=== PATIENT | male | born 1950 | race Caucasian/White ===

== ENCOUNTER 2017-07-19 09:05 | Outpatient (CLI) | payer MEDICARE, OTHER ==
--- NOTE | 2017-07-19 10:43 | MRI ---
MRI OF LUMBAR SPINE: Date: 07/19/17 COMPARISON: 03/14/14. HISTORY: Bilateral lower extremity pain, lower extremity radiculopathy, recent fall. TECHNIQUE: Multiplanar, multisequence MR imaging of the lumbar spine obtained without contrast. FINDINGS: Incidental note is made of a lobulated and enlarged prominent urinary bladder, incompletely assessed on this study and similar when compared to the 03/14/14 examination. The sagittal STIR imaging demonstrates increased signal intensity within the paraspinal soft tissues on the left posterior to the L4-5 and L5-S1 facet joints. There are mild edematous changes noted on the STIR imaging within the inferior articular facet on the left at L4. There is no significant anterolisthesis or retrolisthesis noted within the lumbar spine. Assuming five lumbar-type vertebral bodies, the conus medullaris terminates at the T12-L1 level. T12-L1: Mild bilateral facet hypertrophy. There is disc space narrowing and disc desiccation. No significant central canal or neural foraminal stenosis. L1-2: Mild bilateral facet hypertrophy. Disc space narrowing and disc desiccation with no significant cent ral canal or neural foraminal stenosis. L2-3: There is disc space narrowing, disc desiccation, and mild disc bulge. There is mild bilateral facet hypertrophy with mild central canal stenosis, stable. There is no significant neural foraminal steno sis on either side. L3-4: Mild bilateral facet hypertrophy and hypertrophy of the ligamentum flavum, stable. Disc space narrow ing, disc desiccation, and mild disc bulge causes a mild degree of central canal stenosis, stable. There is moderate bilateral neural foraminal stenosis at L3-4, not significantly changed. L4-5: There is disc space narrowing and disc desiccation with disc bulge causing mild central canal stenos is. There is bilateral facet hypertrophy and hypertrophy of ligamentum flavum, stable. There is danny re left and moderate right neural foraminal stenosis, worsened bilaterally since the prior examinati on. L5-S1: There is disc space narrowing and disc desiccation with mild disc bulge. No significant central jovana l stenosis. Mild bilateral neural foraminal stenosis. There is a T2 hyperintense anterior mid pole left renal lesion measuring approximately 2.0 cm, incre ased from the 2014 exam, at which time it measured 1.3 cm. The likely represents an enlarging cyst. Ultrasound is suggested for full assessment given interval enlargement. IMPRESSION: 1. Multilevel degenerative change within the lumbar spine, the most significant interval change is worsening bilateral neural foraminal stenosis at L4-5, left greater than right. 2. T2 hyperintensity noted within the paraspinal musculature posterior to the L4-5 and L5-S1 left f acet joints. This could be related to trauma or recent injection. 3. Enlarged lobulated urinary bladder. 4. T2 hyperintense lesion within right kidney, enlarged since prior imaging, likely on the basis of a cyst. Confirmation with renal ultrasound advised. POS: [facility]
== END 2017-07-19 09:06 | disposition home or self-care (01) ==
LOC: MRI 09:05
PROVIDERS: ATTEND Orthopaedic Surgery
DX: M47.26 Other spondylosis with radiculopathy, lumbar region (principal); M48.061 Spinal stenosis, lumbar region without neurogenic claudication; N28.89 Other specified disorders of kidney and ureter; Z12.5 Encounter for screening for malignant neoplasm of prostate; Z00.00 Encounter for general adult medical examination without abnormal findings; Z79.899 Other long term (current) drug therapy
CPT/HCPCS: 72148; 80061; G0103; 36415; 80053; 84443; 85025

== ENCOUNTER 2018-05-04 10:32 | Outpatient (CLI) | payer MEDICARE, OTHER ==
[2018-05-04 12:06] LABS: Hemoglobin 13.7 g/dL (14.0-18.0); Mean Corpuscular HGB CONC 32.6 g/dL (32.0-36.0); Mean Corpuscular Hemoglobin 31.4 pg (27.0-31.0); Mean Corpuscular Volume 96.3 fL (78.0-98.0); Mean Platelet Volume 6.5 fL (7.4-10.4); Platelet Count 209 thou/uL (130-400); RBC Distribution Width 12.1 % (11.5-14.5); Red Blood Cell (RBC) Count 4.36 mill/uL (4.70-6.10); White Blood Cell (WBC) Count 5.5 thou/uL (4.8-10.8)
[2018-05-04 12:15] LABS: INR-International Normal Ratio 1.1; PTT 34.8 SEC (22.9-36.1); Prothrombin Time 13.9 SEC (12.0-14.7)
[2018-05-04 12:26] LABS: Anion Gap 13 mmol/L (10-20); BUN (Urea Nitrogen) 13 mg/dL (8.4-25.7); Calc. Creatinine Clearance 0 mL/min (70-130); Calcium 9.6 mg/dL (7.8-10.44); Carbon Dioxide 24 mmol/L (23-31); Chloride 100 mmol/L (98-107); Estimated GFR-MDRD Greater than 90; Glucose 91 mg/dL (80-115); Potassium 4.5 mmol/L (3.5-5.1); Sodium 132 mmol/L (136-145)
[2018-05-04 12:48] LABS: Bilirubin Negative (Negative); Blood, Urine Negative (Negative); Clarity CLOUDY (Clear); Glucose, Urine (Dipstick) Negative (Negative); Leukocyte Large (Negative); Nitrite Negative (Negative); Protein, Urine (Dipstick) Negative (Neg-Trace); Urobilinogen 0.2 mg/dL (0.2-1.0); pH, Urine 7.5 (5.0-9.0)
[2018-05-04 12:53] LABS: Bacteria/HPF 3+ HPF (None Seen); Hyaline Casts/LPF 0-3 HYALINE CAST LPF (0-3 Hyaline); RBC/HPF 0-3 HPF (0-3); Squamous Epithelial None Seen HPF (0-3)
== END 2018-05-04 10:33 | disposition home or self-care (01) ==
LOC: LABBT 10:32
PROVIDERS: ATTEND Urology
DX: Z01.818 Encounter for other preprocedural examination (principal); N40.1 Benign prostatic hyperplasia with lower urinary tract symptoms
CPT/HCPCS: 80048; 81001; 85027; 85610; 85730; 86850; 86900; 86901; 87086; 93005; 93010

== ENCOUNTER 2018-08-23 20:30 | Outpatient (CLI) | payer MEDICARE, OTHER | END 2018-08-23 20:31 | disposition home or self-care (01) | LOC: SLEEPLAB 20:30 | PROVIDERS: ATTEND Family Medicine | DX: G47.33 Obstructive sleep apnea (adult) (pediatric) (principal); R53.83 Other fatigue; R06.83 Snoring | CPT/HCPCS: 95811 ==

== ENCOUNTER 2021-09-04 12:39 | Outpatient (CLI) | payer MEDICARE, OTHER ==
[~2021-09-04 12:39] MED LIST: Iopamidol 370 76% 100 ML VIAL ONE
[2021-09-04 12:56] LABS: Estimated GFR-MDRD - POC Greater than 90
== END 2021-09-04 12:40 | disposition home or self-care (01) ==
LOC: ULT 12:39
PROVIDERS: ATTEND Family Medicine
DX: G45.9 Transient cerebral ischemic attack, unspecified (principal)
CPT/HCPCS: 70470; 82565; 93880; Q9967

== ENCOUNTER 2022-06-01 13:03 | Outpatient (CLI) | payer MEDICARE, OTHER | END 2022-06-01 13:04 | disposition home or self-care (01) | LOC: BICRAD 13:03 | PROVIDERS: ATTEND Family Medicine | DX: R05.2 Subacute cough (principal) | CPT/HCPCS: 71046 ==

== ENCOUNTER 2023-09-05 14:58 | Outpatient (CLI) | payer MEDICARE, OTHER | END 2023-09-05 14:59 | disposition home or self-care (01) | LOC: BICRAD 14:58 | PROVIDERS: ATTEND Family Medicine | DX: S43.402A Unspecified sprain of left shoulder joint, initial encounter (principal) ==

== ENCOUNTER 2025-07-26 12:18 | Outpatient (CLI) | payer MEDICARE, OTHER | END 2025-07-26 12:19 | disposition home or self-care (01) | LOC: BICMRI 12:18 | PROVIDERS: ATTEND Orthopaedic Surgery | DX: M75.102 Unspecified rotator cuff tear or rupture of left shoulder, not specified as traumatic (principal); S46.912A Strain of unspecified muscle, fascia and tendon at shoulder and upper arm level, left arm, initial encounter ==